=== PATIENT | male | born 1955 | race Caucasian/White ===

== ENCOUNTER 2018-08-11 10:57 | Emergency (ER) | payer OTHER ==
--- NOTE | 2018-08-11 11:20 | XRAY Report ---
Reason: palpitations Procedure Date: 08/11/2018 Accession Number: [id number] / [id number] Procedure: XR - Chest 1 View X-Ray CPT Code: 24465 FULL RESULT: EXAM: CHEST RADIOGRAPHY EXAM DATE: 08/11/2018 11:15 AM. CLINICAL HISTORY: Palpitations. COMPARISON: None. TECHNIQUE: 1 view. FINDINGS: Lungs/Pleura: No focal opacities evident. No pleural effusion. No pneumothorax. Mediastinum: Within exam limitations, the cardiomediastinal contour is normal. Other: None. IMPRESSION: Normal single view chest. RADIA
[2018-08-11 11:26] LABS: BASOPHILS % (AUTO) 0.7 %; EOSINOPHILS # (AUTO) 0.1 10^3/uL (0.0-0.7); EOSINOPHILS % (AUTO) 1.7 %; HGB - HEMOGLOBIN 15.3 g/dL (14.0-18.0); LYMPHOCYTES # (AUTO) 1.4 10^3/uL (1.5-3.5); LYMPHOCYTES % (AUTO) 22.7 %; MEAN CORPUSCULAR HEMOGLOBIN 31.2 pg (27.0-31.0); MEAN CORPUSCULAR HGB CONC 34.3 g/dL (32.0-36.0); MEAN CORPUSCULAR VOLUME 91.1 fL (80.0-94.0); MEAN PLATELET VOLUME 8.1 fL (7.4-11.4); MONOCYTES # (AUTO) 0.6 10^3/uL (0.0-1.0); MONOCYTES % (AUTO) 9.7 %; NEUTROPHILS # (AUTO) 4.1 10^3/uL (1.5-6.6); NEUTROPHILS % (AUTO) 65.2 %; PLT - PLATELET COUNT 217 10^3/uL (130-450); RED BLOOD COUNT 4.89 10^6/uL (4.70-6.10); RED CELL DISTRIBUTION WIDTH 14.1 % (12.0-15.0); WHITE BLOOD COUNT 6.2 x10^3/uL (4.8-10.8)
[2018-08-11 11:39] LABS: ALBUMIN 4.3 g/dL (3.2-5.5); ALBUMIN/GLOBULIN RATIO 1.3 (1.0-2.2); BILIRUBIN,TOTAL 0.8 mg/dL (0.2-1.0); CALCIUM 9.7 mg/dL (8.5-10.3); CREATININE 0.8 mg/dL (0.6-1.2); TOTAL PROTEIN 7.5 g/dL (6.7-8.2)
[2018-08-11 12:27] VITALS: BP 138/99
--- NOTE | 2018-08-11 12:36 | ED Physician Documentation ---
History of Present Illness - Stated complaint Stated Complaint: RAPID HR - Chief complaint Chief Complaint: Cardiac - History obtained from History obtained from: Patient, Family - History of Present Illness Timing: Today - Additonal information Additional information: 63-year-old male who is visiting here from [place] found his heart to be beating rapidly and irregularly this morning and he has had this happen to him once previously with atrial fibrillation. He denies any shortness of breath and denies any current illness associated with this. He does state that he has some stress and that he had to talk to his on the phone yesterday. He is staying here with some friends and he is from his for the past year. Review of Systems Constitutional: denies: Fever, Chills, Myalgias Eyes: denies: Decreased vision Ears: denies: Ear pain Nose: denies: Rhinorrhea / runny nose, Congestion Throat: denies: Sore throat Cardiac: reports: Palpitations. denies: Chest pain / pressure Respiratory: denies: Dyspnea, Cough GI: denies: Abdominal Pain, Nausea, Vomiting : denies: Dysuria, Frequency Skin: denies: Rash Musculoskeletal: denies: Neck pain, Back pain, Extremity pain Neurologic: denies: Generalized weakness, Focal weakness, Numbness, Headache, Head injury, LOC PD PAST MEDICAL HISTORY - Past Medical History Neuro: Other Other Past Medical History: subarachniod hematoma - Past Surgical History Past Surgical History: Yes HEENT: Tonsil/Adenoidectomy - Present Medications Home Medications: Ambulatory Orders Medication Instructions Recorded Confirmed No Known Home Medications 08/11/18 08/11/18 - Allergies Allergies/Adverse Reactions: Allergies Allergy/AdvReac Type Severity Reaction Status Date / Time No Known Drug Allergies Allergy Verified 08/11/18 11:03 - Social History Does the pt smoke?: No Smoking Status: Never smoker PD ED PE NORMAL - Vitals Vital signs reviewed: Yes - General General: Alert and oriented X 3, No acute distress, Well developed/nourished - HEENT HEENT: Atraumatic, PERRL, EOMI, Ears normal, Moist mucous membranes, Pharynx benign - Neck Neck: Supple, no meningeal sign, No bony TTP - Cardiac Cardiac: RRR, No murmur - Respiratory Respiratory: No respiratory distress, Clear bilaterally - Abdomen Abdomen: Soft, Non tender - Back Back: No CVA TTP, No spinal TTP - Derm Derm: Normal color, Warm and dry, No rash - Extremities Extremities: No deformity, No edema - Neuro Neuro: Alert and oriented X 3, stem roller 2-12 intact, No motor deficit, No sensory deficit, Normal speech Eye Opening: Spontaneous Motor: Obeys Commands Verbal: Oriented GCS Score: 15 - Psych Psych: Normal mood, Normal affect Results - Vitals Vitals: Vital Signs - 24 hr 08/11/18 08/11/18 10:59 12:23 Temperature 36.3 C L Heart Rate 135 H Respiratory 16 Rate Blood Pressure 133/93 H Blood Pressure 138/99 H [Left] O2 Saturation 100 Oxygen O2 Source Room air - EKG (time done) 1103 Rate: Rate (enter#) (147) Rhythm: Atrial fibrillation Ischemia: Non specific changes Compare to prior EKG: Old EKG unavailable Computer interpretation: Agree with computer 1226 Rate: Rate (enter#) (67) Rhythm: NSR Ischemia: Normal ST segments Compare to prior EKG: Changed from prior EKG (SPT earlier today rate has decreased and rhythm has changed to sinus) Computer interpretation: Agree with computer - Labs Labs: Laboratory Tests 08/11/18 08/11/18 08/11/18 11:15 11:15 11:15 WBC 6.2 RBC 4.89 Hgb 15.3 Hct 44.6 MCV 91.1 MCH 31.2 H MCHC 34.3 RDW 14.1 Plt Count 217 MPV 8.1 Neut # (Auto) 4.1 Lymph # (Auto) 1.4 L [place] # (Auto) 0.6 Eos # (Auto) 0.1 Baso # (Auto) 0.0 Absolute Nucleated RBC 0.00 Nucleated RBC % 0.1 Sodium 140 Potassium 4.3 Chloride 105 Carbon Dioxide 27 Anion Gap 8.0 BUN 21 H Creatinine 0.8 Estimated GFR (MDRD) 97 Glucose 84 Calcium 9.7 Total Bilirubin 0.8 AST 21 ALT 19 Alkaline Phosphatase 84 Troponin I < 0.04 Total Protein 7.5 Albumin 4.3 Globulin 3.2 Albumin/Globulin Ratio 1.3 Lipase 37 - Rads (name of study) chest x-ray Radiology: Prelim report reviewed (Impression: Normal single view chest.), EMP read indepedently, See rad report PD MEDICAL DECISION MAKING - ED course Complexity details: reviewed results, re-evaluated patient, considered differential, d/w patient, d/w family ED course: 63-year-old male with a prior history of intermittent atrial fibrillation has had an episode of atrial fibrillation today that we were able to capture on electrocardiogram here this morning. His blood work and x-ray are otherwise unremarkable and he is otherwise not ill. He did have some stress related to talking to a that he is from. The patient converted spon taneously in the emergency department and a second electrocardiogram was obtained showing a sinus rhythm with a rate of 67. The patient is recommended to go see his primary care doctor on return to his home in [place]. Departure - Departure Disposition: , Self Care Clinical Impression: Atrial fibrillation Qualifiers: Atrial fibrillation type: paroxysmal Qualified Code(s): I48.0 - Paroxysmal atrial fibrillation Condition: Stable Instructions: ED Afib Follow-Up: Your, doctor [Other] Comments: Today you had an episode of afib with rapid ventricular response with a rate of 147 captured. My recommendation is to obtain a fit bit and review the results with your primary care doctor when you return home.
== END 2018-08-11 12:46 | disposition home or self-care (01) ==
LOC: ED 10:57
DX: I48.0 Paroxysmal atrial fibrillation (principal)
CPT/HCPCS: 36415; 71045; 80053; 83690; 84484; 85025; 93005; 99283